=== PATIENT | female | born 1995 | race Caucasian/White ===

== ENCOUNTER 2018-02-07 11:56 | Emergency (ER) | payer SELFPAY ==
[2018-02-07] MEDS ORDERED: Ondansetron 4 MG/2 ML SDV IVPUSH ONE (12:01)
[2018-02-07] MEDS ORDERED: Sodium Chloride 0.9% 1,000 ML IV ONE (12:01)
--- NOTE | 2018-02-07 12:12 | EDM.PDOC ---
ED HPI GENERAL MEDICAL PROBLEM - General Chief Complaint: Abdominal Pain Stated Complaint: VOMITING Time Seen by Provider: 02/07/18 12:01 Source of Information: Reports: Patient History Limitations: Reports: No Limitations - History of Present Illness INITIAL COMMENTS - FREE TEXT/NARRATIVE: HISTORY AND PHYSICAL: History of present illness: Patient is a 22-year-old female who presents to the emergency room today with complaints of abdominal pain, nausea and vomiting. She states over the past 2-3 days she has felt mildly nauseated. This morning she woke up with right lower quadrant pain that radiates to the right mid back and vomiting. She denies any fever, chills, chest pain, shortness of breath or cough. She denies any diarrhea, constipation or dysuria. LMP: Current 02/05/2018 Review of systems: As per history of present illness and below otherwise all systems reviewed and negative. Past medical history: As per history of present illness and as reviewed below otherwise noncontributory. Surgical history: As per history of present illness and as reviewed below otherwise noncontributory. Social history: No reported history of drug or alcohol abuse. Family history: As per history of present illness and as reviewed below otherwise noncontributory. Physical exam: General: Well-developed and well-nourished 22-year-old female. Alert and oriented. Nontoxic appearing and in no acute distress. HEENT: Atraumatic, normocephalic, pupils equal and reactive bilaterally, negative for conjunctival pallor or scleral icterus, mucous membranes moist, throat clear, neck supple, nontender, trachea midline. No drooling or trismus noted. No meningeal signs Lungs: Clear to auscultation, breath sounds equal bilaterally, chest nontender. Heart: S1S2, regular rate and rhythm without overt murmur Abdomen: Soft, nondistended, superpubic/LLQ and RLQ tenderness - no rebound tenderness. No guarding. Negative for masses or hepatosplenomegaly. Right sided costovertebral tenderness. Pelvis: Stable nontender. Genitourinary: Deferred. Rectal: Deferred. Skin: Intact, warm, dry. No lesions or rashes noted. Extremities: Atraumatic, negative for cords or calf pain. Neurovascular unremarkable. Neuro: Awake, alert, oriented. Cranial nerves II through XII unremarkable. Cerebellum unremarkable. Motor and sensory unremarkable throughout. Exam nonfocal. Notes: She does have an elevated white count and urine shows a UTI. With the patient's symptoms will treat for pyelonephritis. No signs are stable. This information was shared with the patient and she is comfortable being discharged to home. Her significant other is at the bedside and is driving the patient to home. Spoke with Dr Hernandez regarding this case. He is not concerned of an appendicitis. He is agreeable that the patient should be treated for UTI/ pyelonephritis with IV antibiotic and oral. He states that the patient continues to have right lower quadrant pain or new symptoms develop she should follow up in the ER for further evaluation. Diagnostics: CBC, CMP, UA, urine , CT abdomen and pelvis Therapeutics: IV fluid, Zofran, Toradol, Morphine, Rocephin Prescription: Cipro BID x 10 days Tramadol (#15) Impression: Pyelonephritis, right Plan: 1. Increase your oral fluids. 2. Take your antibiotic as directed. 3. Follow up with your primary care provider in the next 1-2 days. Return to the ED as needed as discussed. Definitive disposition and diagnosis as appropriate pending reevaluation and review of above. Onset: Today Duration: Day(s): Location: Reports: Abdomen RLQ Pain Score (Numeric/FACES): 8 - Related Data Allergies Allergy/AdvReac Type Severity Reaction Status Date / Time No Known Allergies Allergy Verified 02/07/18 12:07 Home Meds: Home Meds Ciprofloxacin HCl [Cipro] 500 mg PO BID 10 Days #20 tablet 02/07/18 [Rx] traMADol [Ultram] 50 mg PO Q6H PRN #15 tab 02/07/18 [Rx] ED ROS GENERAL - Review of Systems Review Of Systems: ROS reveals no pertinent complaints other than HPI. ED EXAM, GI/ABD - Physical Exam Exam: See Below (See dictation) Course - Vital Signs Last Recorded V/S: Last Vital Signs Temp 97.3 F 02/07/18 12:13 Pulse 113 H 02/07/18 12:13 Resp 16 02/07/18 12:13 BP 108/68 02/07/18 12:13 Pulse Ox 97 02/07/18 12:13 - Orders/Labs/Meds Orders: Active Orders 24 hr Category Date Time Status Abdomen Pelvis w Cont [CT] Stat Exams 02/07/18 12:15 Taken CULTURE URINE [RM] Stat Lab 02/07/18 13:58 Ordered HCG QUALITATIVE,URINE [URCHEM] Stat Lab 02/07/18 12:15 Ordered UA W/MICROSCOPIC [URIN] Stat Lab 02/07/18 12:15 Ordered Labs: Laboratory Tests 02/07/18 02/07/18 02/07/18 Range/Units 12:15 12:15 12:15 WBC 17.82 H (4.0-11.0) K/uL RBC 5.07 (4.30-5.90) M/uL Hgb 16.3 H (12.0-16.0) g/dL Hct 47.7 H (36.0-46.0) % MCV 94.1 (80.0-98.0) fL MCH 32.1 H (27.0-32.0) pg MCHC 34.2 (31.0-37.0) g/dL RDW Std Deviation 49.0 (28.0-62.0) fl RDW Coeff of Briseyda 15 (11.0-15.0) % Plt Count 221 (150-400) K/uL MPV 11.10 (7.40-12.00) fL Neut % (Auto) 86.7 H (48.0-80.0) % Lymph % (Auto) 6.5 L (16.0-40.0) % [place] % (Auto) 5.9 (0.0-15.0) % Eos % (Auto) 0.7 (0.0-7.0) % Baso % (Auto) 0.2 (0.0-1.5) % Neut # (Auto) 15.5 H (1.4-5.7) K/uL Lymph # (Auto) 1.2 (0.6-2.4) K/uL [place] # (Auto) 1.1 H (0.0-0.8) K/uL Eos # (Auto) 0.1 (0.0-0.7) K/uL Baso # (Auto) 0.0 (0.0-0.1) K/uL Nucleated RBC % 0.0 /100WBC Nucleated RBCs # 0 K/uL Sodium (136-145) mmol/L Potassium (3.5-5.1) mmol/L Chloride (98-107) mmol/L Carbon Dioxide (21.0-32.0) mmol/L BUN (7.0-18.0) mg/dL Creatinine (0.6-1.0) mg/dL Est Cr Clr Drug Dosing mL/min Estimated GFR (MDRD) ml/min Glucose (74-106) mg/dL Calcium (8.5-10.1) mg/dL Total Bilirubin (0.2-1.0) mg/dL AST (15-37) IU/L ALT (14-63) IU/L Alkaline Phosphatase (46-116) U/L Total Protein (6.4-8.2) g/dL Albumin (3.4-5.0) g/dL Globulin (2.0-3.5) g/dL Albumin/Globulin Ratio (1.3-2.8) Urine Color YELLOW Urine Appearance CLEAR Urine pH 8.0 (5.0-8.0) Ur Specific [place] 1.020 (1.001-1.035) Urine Protein NEGATIVE (NEGATIVE) mg/dL Urine Glucose (UA) NEGATIVE (NEGATIVE) mg/dL Urine Ketones NEGATIVE (NEGATIVE) mg/dL Urine Occult Blood MODERATE (NEGATIVE) Urine Nitrite NEGATIVE (NEGATIVE) Urine Bilirubin NEGATIVE (NEGATIVE) Urine Urobilinogen 0.2 (<2.0) EU/dL Ur Leukocyte Esterase NEGATIVE (NEGATIVE) Urine RBC 5-10 (0-2/HPF) Urine WBC 4-6 (0-5/HPF) Ur Squamous Epith Cells MANY Urine Bacteria 2+ H (NEGATIVE) Urine Mucus HEAVY (NONE-MOD) Urinalysis Comment MANY CLUE CELLS SEEN Urine HCG, Qual NEGATIVE (NEGATIVE) 02/07/18 Range/Units 12:15 WBC (4.0-11.0) K/uL RBC (4.30-5.90) M/uL Hgb (12.0-16.0) g/dL Hct (36.0-46.0) % MCV (80.0-98.0) fL MCH (27.0-32.0) pg MCHC (31.0-37.0) g/dL RDW Std Deviation (28.0-62.0) fl RDW Coeff of Briseyda (11.0-15.0) % Plt Count (150-400) K/uL MPV (7.40-12.00) fL Neut % (Auto) (48.0-80.0) % Lymph % (Auto) (16.0-40.0) % [place] % (Auto) (0.0-15.0) % Eos % (Auto) (0.0-7.0) % Baso % (Auto) (0.0-1.5) % Neut # (Auto) (1.4-5.7) K/uL Lymph # (Auto) (0.6-2.4) K/uL [place] # (Auto) (0.0-0.8) K/uL Eos # (Auto) (0.0-0.7) K/uL Baso # (Auto) (0.0-0.1) K/uL Nucleated RBC % /100WBC Nucleated RBCs # K/uL Sodium 140 (136-145) mmol/L Potassium 4.3 (3.5-5.1) mmol/L Chloride 105 (98-107) mmol/L Carbon Dioxide 25.2 (21.0-32.0) mmol/L BUN 11 (7.0-18.0) mg/dL Creatinine 0.8 (0.6-1.0) mg/dL Est Cr Clr Drug Dosing 81.82 mL/min Estimated GFR (MDRD) > 60.0 ml/min Glucose 114 H (74-106) mg/dL Calcium 9.4 (8.5-10.1) mg/dL Total Bilirubin 0.3 (0.2-1.0) mg/dL AST 21 (15-37) IU/L ALT 25 (14-63) IU/L Alkaline Phosphatase 80 (46-116) U/L Total Protein 7.9 (6.4-8.2) g/dL Albumin 4.4 (3.4-5.0) g/dL Globulin 3.5 (2.0-3.5) g/dL Albumin/Globulin Ratio 1.3 (1.3-2.8) Urine Color Urine Appearance Urine pH (5.0-8.0) Ur Specific [place] (1.001-1.035) Urine Protein (NEGATIVE) mg/dL Urine Glucose (UA) (NEGATIVE) mg/dL Urine Ketones (NEGATIVE) mg/dL Urine Occult Blood (NEGATIVE) Urine Nitrite (NEGATIVE) Urine Bilirubin (NEGATIVE) Urine Urobilinogen (<2.0) EU/dL Ur Leukocyte Esterase (NEGATIVE) Urine RBC (0-2/HPF) Urine WBC (0-5/HPF) Ur Squamous Epith Cells Urine Bacteria (NEGATIVE) Urine Mucus (NONE-MOD) Urinalysis Comment Urine HCG, Qual (NEGATIVE) Meds: Medications Discontinued Medications Generic Name Dose Route Start Last Admin Trade Name Freq PRN Reason Stop Dose Admin Sodium Chloride 1,000 mls @ 999 mls/hr 02/07/18 12:01 02/07/18 12:27 Normal Saline IV 02/07/18 13:01 999 mls/hr STAT ONE Administration Ceftriaxone Sodium/Dextrose 1 50 mls @ 100 mls/hr 02/07/18 14:20 02/07/18 14: 48 gm/ Premix IV 02/07/18 14:49 100 mls/hr ONETIME ONE Administration Iopamidol 100 ml 02/07/18 14:00 02/07/18 14:02 Isovue Multipack-370 (76%) IVPUSH 02/07/18 14:01 100 ml ONETIME STA Administration Ketorolac Tromethamine 30 mg 02/07/18 12:15 02/07/18 12:25 Toradol IVPUSH 02/07/18 12:16 30 mg ONETIME ONE Administration Morphine Sulfate 4 mg 02/07/18 12:47 02/07/18 13:15 Morphine IVPUSH 02/07/18 12:48 4 mg ONETIME ONE Administration Ondansetron HCl 4 mg 02/07/18 12:01 02/07/18 12:29 Zofran IVPUSH 02/07/18 12:02 4 mg ONETIME ONE Administration Departure - Departure Time of Disposition: 14:25 Disposition: Home, Self-Care 01 Clinical Impression: Pyelonephritis - Discharge Information Prescriptions: Ciprofloxacin HCl [Cipro] 500 mg PO BID 10 Days #20 tablet traMADol [Ultram] 50 mg PO Q6H PRN #15 tab PRN Reason: Pain Instructions: Pyelonephritis, Adult, [id number] Referrals: PCP,None [Primary Care Provider] - Forms: ED Department Discharge Additional Instructions: The following information is given to patients seen in the emergency department who are being discharged to home. This information is to outline your options for follow-up care. We provide all patients seen in our emergency department with a follow-up referral. The need for follow-up, as well as the timing and circumstances, are variable depending upon the specifics of your emergency department visit. If you don't have a primary care physician on staff, we will provide you with a referral. We always advise you to contact your personal physician following an emergency department visit to inform them of the circumstance of the visit and for follow-up with them and/or the need for any referrals to a consulting specialist. The emergency department will also refer you to a specialist when appropriate. This referral assures that you have the opportunity for follow-up care with a specialist. All of these measure are taken in an effort to provide you with optimal care, which includes your follow-up. Under all circumstances we always encourage you to contact your private physician who remains a resource for coordinating your care. When calling for follow-up care, please make the office aware that this follow-up is from your recent emergency room visit. If for any reason you are refused follow-up, please contact the [facility] Emergency Department at and asked to speak to the emergency department charge nurse. [facility] [address] [place] [id number] 1. Increase your oral fluids. 2. Take your antibiotic as directed. 3. Tylenol and or ibuprofen as needed for pain management. Tramadol for moderate to severe pain. It occasionally cause drowsiness a do not take it while driving or needing to be functioning outside of the house. 4. Follow up with your primary care provider in the next 1-2 days. Return to the ED as needed as discussed. - My Orders Last 24 Hours: My Active Orders 02/07/18 12:15 Abdomen Pelvis w Cont [CT] Stat HCG QUALITATIVE,URINE [URCHEM] Stat UA W/MICROSCOPIC [URIN] Stat 02/07/18 13:58 CULTURE URINE [RM] Stat - Assessment/Plan Last 24 Hours: My Active Orders 02/07/18 12:15 Abdomen Pelvis w Cont [CT] Stat HCG QUALITATIVE,URINE [URCHEM] Stat UA W/MICROSCOPIC [URIN] Stat 02/07/18 13:58 CULTURE URINE [RM] Stat
[2018-02-07] MEDS ORDERED: Ketorolac 30 MG/ML SDV IVPUSH ONE (12:15)
[2018-02-07] MEDS ORDERED: Morphine 2 MG/ML Syringe IVPUSH ONE (12:47)
[2018-02-07 13:12] LABS: CHLORIDE,CL 105 mmol/L (98-107); SODIUM,NA 140 mmol/L (136-145)
[2018-02-07] MEDS ORDERED: Iopamidol 755 MG/ML 500 ML Multipack Bottle IVPUSH STA (14:00)
[2018-02-07] MEDS ORDERED: cefTRIAXone 1 GM in Premix Bag 1 BAG IV ONE (14:20)
--- NOTE | 2018-02-08 09:54 | CT ---
EXAM DATE: 02/07/18 PATIENT'S AGE: 22 Patient: ALBERT RAUSCH Facility: [place], [place] Site . Site : 1995 Study: CT Abdomen/Pelvis [id number] 1:56:04 PM Ordering Physician: Doctor Doherty Final Report: INDICATION: Right lower quadrant pain. TECHNIQUE: CT scan abdomen and pelvis. Intravenous contrast. FINDINGS: GI tract: Moderately large amount of fluid in the distal small bowel as well as the right colon. The appendix is difficult to visualize. Very small gas containing structure however is present in the superior right pelvic sidewall and this could be very collapsed appendix. Images 89-93 anterior to the vessels. No mesenteric fat stranding. Pelvis: Free fluid small volume. Uterus is subseptate or arcuate. The right and left ovaries are grossly normal in size. The bladder is normal. Miscellaneous: Normal liver, spleen, adrenal glands, pancreas and kidneys with no hydronephrosis. No suspicious adenopathy in the retroperitoneum or mesentery. The lung bases and skeletal structures are normal. IMPRESSION: 1. Possible small collapsed appendix right lower quadrant no other definite inflammatory changes. If symptoms persist however consider delayed follow-up imaging. 2. Increased fluid distal GI tract which could be seen with infection or enteritis. 3. Small amount of free fluid in the pelvis nonspecific. Ovaries appear normal size. Incidental arcuate/subseptate uterus. Please note that all CT scans at this facility use dose modulation, iterative reconstruction, and/or weight-based dosing when appropriate to reduce radiation dose to as low as reasonably achievable. Dictated by Barrett Chung MD @ Feb 07 2018 1:59PM (Electronic Signature) Report Signed by Proxy. [facility] HOSPITALStephanie
== END 2018-02-07 15:23 | disposition home or self-care (01) ==
LOC: MW.ED 11:56
DX: N12 Tubulo-interstitial nephritis, not specified as acute or chronic (principal)
CPT/HCPCS: 36415; 74177; 80053; 81001; 81025; 85025; 87086; 96361; 96365; 96375; 99284; J0696; J1885; J2270; J2405; J7040; Q9967; 87088; 87186